=== PATIENT | male | born 1950 | race Caucasian/White ===

== ENCOUNTER → 2024-09-28 10:32 | Outpatient (BNVA) | payer MEDICARE, SELFPAY | PROVIDERS: Visit Provider Psychiatry & Neurology Neurology | DX: I63.9 Cerebral infarction, unspecified (principal); R47.81 Slurred speech; R53.1 Weakness; R29.818 Other symptoms and signs involving the nervous system; R29.2 Abnormal reflex; Z79.02 Long term (current) use of antithrombotics/antiplatelets | CPT/HCPCS: 99203 ==

== ENCOUNTER → 2025-05-31 14:26 | Outpatient (BNVA) | payer MEDICARE, SELFPAY | PROVIDERS: Visit Provider Psychiatry & Neurology Neurology | DX: I63.9 Cerebral infarction, unspecified (principal); R53.1 Weakness; R29.818 Other symptoms and signs involving the nervous system; Z86.73 Personal history of transient ischemic attack (TIA), and cerebral infarction without residual deficits; R29.2 Abnormal reflex | CPT/HCPCS: 99212 ==